=== PATIENT | male | born 1995 | race African-American/Black ===

== ENCOUNTER 2020-01-24 22:20 | Emergency (ER) | payer BC ==
[~2020-01-24] VITALS: Ht 185.4 cm; Wt 84.0 kg
[2020-01-24 22:23] VITALS: BP 147/83
--- NOTE | 2020-01-24 22:37 | PHYS DOC ---
Past History Past Medical History: No Pertinent History Adult General Chief Complaint Chief Complaint: BLOOD IN URINE HPI HPI Patient is a [age] year old [sex] who presents with [] Review of Systems Review of Systems Fourteen body systems of review of systems have been reviewed. See HPI for pertinent positives and negative responses, other myers all other systems are negative, non-pertinent or non-contributory Physical Exam Physical Exam Constitutional: Well developed, well nourished, no acute distress, non-toxic appearance. HENT: Normocephalic, atraumatic, bilateral external ears normal, oropharynx moist, no oral exudates, nose normal. Eyes: PERRLA, EOMI, conjunctiva normal, no discharge. Neck: Normal range of motion, no tenderness, supple, no stridor. Cardiovascular: Heart rate regular, sinus rhythm, no murmurs rubs or gallops Lungs & Thorax: Bilateral breath sounds clear to auscultation Abdomen: Bowel sounds normal, soft, no tenderness, no masses, no pulsatile masses. Nonsurgical abdomen, no peritoneal signs Skin: Warm, dry, no erythema, no rash. Back: No tenderness, no CVA tenderness. Extremities: No tenderness, no cyanosis, no clubbing, ROM intact, no edema. Neurologic: Alert and oriented X 3, grossly normal motor & sensory function, no focal deficits noted. Psychologic: Affect normal, judgement normal, mood normal. EKG EKG [] Radiology/Procedures Radiology/Procedures [] Course & Med Decision Making Course & Med Decision Making Pertinent Labs and Imaging studies reviewed. (See chart for details) [] Dragon Disclaimer Dragon Disclaimer This electronic medical record was generated, in whole or in part, using a voice recognition dictation system. Departure Departure: Impression: Primary Impression: Hematuria Additional Impressions: Elevated serum creatinine Dehydration Alcohol abuse Disposition: 01 DC HOME SELF CARE/HOMELESS Condition: STABLE Referrals: PCP,NO (PCP) Patient Instructions: Dehydration-SportsMed, Hematuria, Adult Additional Instructions: As discussed prior to ER discharge, please call your primary care physician tomorrow to schedule outpatient follow-up in upcoming 1 to 5 days time Continue to consume healthy p.o. fluids such as water and Pedialyte given dehydration from recent alcohol abuse There may be indication for outpatient renal imaging such as kidney ultrasounds or CT scans but at this time, management would not change If any concerning signs or symptoms arise prior to seeing your primary care physician, please feel free to call our ER and/or represent for formal e valuation It was a pleasure to take care of you this evening and I wish you a speedy recovery Problem Qualifiers SHERRIE SAUNDERS DO Jan 24, 2020 22:37
[2020-01-24 23:01] LABS: BACTERIA,URINE 0 /HPF (0-FEW); BILIRUBIN,URINE NEG (NEG); CLARITY,URINE CLOUDY; COLOR,URINE STRAW; GLUCOSE,URINE NEG (NEG); NITRITE,URINE NEG (NEG); RBC,URINE >40 /HPF (0-2); SQUAMOUS EPITHELIAL CELL,UR FEW /LPF; UROBILINOGEN,URINE 0.2 mg/dL (0.2 mg/dL)
[2020-01-24] MEDS ORDERED: IV NORMAL SALINE 1,000ML 1,000 ML IV ONE (23:15)
[2020-01-24 23:39] LABS: BASO % 0 % (0-3); EOS # 0.1 x10^3/uL (0.0-0.7); EOS % 2 % (0-3); HEMATOCRIT 44.3 % (39.0-53.0); HEMOGLOBIN 14.6 g/dL (13.0-17.5); LYMPH # 2.5 x10^3/uL (1.0-4.8); LYMPH % 31 % (24-48); MEAN CORPUSCULAR HEMOGLOBIN 32 pg (25-35); MEAN CORPUSCULAR HGB CONC 33 g/dL (31-37); MEAN CORPUSCULAR VOLUME 95 fL (79-100); MONO # 0.9 x10^3/uL (0.0-1.1); MONO % 11 % (0-9); NEUT # 4.6 x10^3uL (1.8-7.7); NEUT % 57 % (31-73); PLATELET COUNT 191 x10^3/uL (140-400); RED BLOOD COUNT 4.64 x10^6/uL (4.30-5.70); RED CELL DISTRIBUTION WIDTH 13.3 % (11.5-14.5); WHITE BLOOD COUNT 8.1 x10^3/uL (4.0-11.0)
[2020-01-24 23:44] LABS: CREATININE 1.4 mg/dL (0.7-1.3); GFR 61.7
[2020-01-24 23:50] LABS: ALBUMIN 3.8 g/dL (3.4-5.0); TOTAL BILIRUBIN 0.5 mg/dL (0.2-1.0); TOTAL PROTEIN 7.8 g/dL (6.4-8.2)
[2020-01-25] MEDS ORDERED: IV NORMAL SALINE 500ML 500 ML IV ONE (00:15)
== END 2020-01-25 01:21 | disposition home or self-care (01) ==
LOC: ER 22:20
DX: R31.9 Hematuria, unspecified (principal); R79.89 Other specified abnormal findings of blood chemistry; E86.0 Dehydration; F10.10 Alcohol abuse, uncomplicated; Y90.9 Presence of alcohol in blood, level not specified
CPT/HCPCS: 36415; 80053; 81001; 82550; 85025; 87491; 87591; 96360; 96361; 99283; J7030; J7040

== ENCOUNTER 2020-07-28 12:24 | Emergency (ER) | payer BC ==
[~2020-07-28] VITALS: Ht 185.4 cm; Wt 85.0 kg
[2020-07-28 12:50] VITALS: BP 137/85
[2020-07-28] MEDS ORDERED: CLOT15CR23 TP (13:30)
[2020-07-28] MEDS ORDERED: DOXY100T PO (13:31)
--- NOTE | 2020-07-28 13:32 | PHYS DOC ---
Past History Past Medical History: No Pertinent History Past Surgical History: No Surgical History Alcohol Use: Occasionally General Adult EDM: Chief Complaint: SEXUALLY TRANSMITTED DISEASE HPI: HPI: Patient is a 25-year-old male coming in for concerns of sexually transmitted infection. Patient states he was intoxicated for his birthday and had unprot ected intercourse with a female. Patient states he has not had any discharge, dysuria, hematuria, testicular pain, pain with defecation, or lesions. Patient states he has had to the base of his penis and testicles. Review of Systems: Review of Systems: All other systems within normal limits except for as noted in the HPI Allergies: Allergies: Allergies Coded Allergies Type Severity Reaction Last Updated Verified No Known Drug Allergies 01/24/20 No Physical Exam: PE: Constitutional: Well developed, well nourished, no acute distress, non-toxic appearance. [] HENT: Normocephalic, atraumatic, bilateral external ears normal, nose normal. [] Eyes: PERRLA, conjunctiva normal, no discharge. [] Neck: No rigidity, supple, no stridor. [] Cardiovascular: Regular rate and rhythm, brisk cap refill [] Lungs & Thorax: Non labored symmetric respirations, no tachypnea or respiratory distress [] Abdomen: Soft, nondistended. Skin: Warm, dry, no erythema, no rash. Genital exam no lesions or vesicles. No erythema or induration. No fluctuance. Back: Unremarkable Extremities: No deformities, range of motion grossly intact, no lower extremity edema [] Neurologic: Alert and oriented X 3, no focal deficits noted. [] Psychologic: Affect normal, judgement normal, mood normal. [] Current Patient Data: Vital Signs: Vital Signs Date Time Temp Pulse Resp B/P (MAP) Pulse Ox O2 Delivery O2 Flow Rate FiO2 07/28/20 12:50 98.0 56 14 137/85 (102) 99 EKG: EKG: [] Radiology/Procedures: Radiology/Procedures: [] Heart Score: C/O Chest Pain: No Risk Factors: Risk Factors: DM, Current or recent (<one month) smoker, HTN, HLP, family history of CAD, obesity. Risk Scores: Score 0 - 3: 2.5% MACE over next 6 weeks - Discharge Home Score 4 - 6: 20.3% MACE over next 6 weeks - Admit for Clinical Observation Score 7 - 10: 72.7% MACE over next 6 weeks - Early Invasive Strategies Course & Med Decision Making: Course & Med Decision Making Tested for STDs and treatment for likely fungal rash. Marni Disclaimer: Marni Disclaimer: This electronic medical record was generated, in whole or in part, using a voice recognition dictation system. Departure Departure: Impression: Primary Impression: Possible exposure to STD Additional Impression: Tinea cruris Disposition: HOME / SELF CARE / HOMELESS Condition: STABLE Referrals: PCP,NO (PCP) Patient Instructions: Safe Sex Additional Instructions: You have been treated for gonorrhea, if results come back positive for chlamydia fill prescription for doxycycline to take as directed. Scripts Doxycycline Hyclate (DOXYCYCLINE HYCLATE) 100 Mg Tablet 1 TAB PO BID for antibiotic, #14 TAB Prov: ADIS BOONE MD 07/28/20 Clotrimazole (CLOTRIMAZOLE) 15 Gm Cream..g. 1 MARIO ALBERTO TP BID for antifungal for 14 Days, #15 GM Prov: ADIS BOONE MD 07/28/20 ADIS BOONE MD Jul 28, 2020 13:31
[2020-07-28] MEDS ORDERED: cefTRIAXone IM 500 MG VIAL. IM ONE ×2 (13:35→13:45)
== END 2020-07-28 13:50 | disposition home or self-care (01) ==
LOC: ER 12:24
DX: Z20.2 Contact with and (suspected) exposure to infections with a predominantly sexual mode of transmission (principal); B35.6 Tinea cruris
CPT/HCPCS: 96372; 99283; J0696